=== PATIENT | female | born 1965 | race Caucasian/White ===

== ENCOUNTER 2017-03-13 08:07 | Day surgery (SDC) | payer BC ==
[2017-03-04 15:24] LABS: BASOPHILS 0.3 %; BASOPHILS ABSOLUTE 0.03 10/3/uL (0.0-0.16); BUN (BLOOD UREA NITROGEN) 5 MG/DL (6-23); CALCIUM, SERUM 8.5 MG/DL (8.5-10.4); CHLORIDE, SERUM 103 MMOL/L (96-112); CO2 (CARBON DIOXIDE) 30 MMOL/L (24-34); CREATININE 0.54 MG/DL (0.55-1.02); EOSINOPHILS 0.5 %; EOSINOPHILS ABSOLUTE 0.05 10/3/uL (0.0-0.53); GFR AFRICAN AMERICAN 127 ML/MIN (>=60); GFR NON AFRICAN AMERICAN 109 ML/MIN (>=60); GLUCOSE, SERUM 119 MG/DL (60-99); HEMATOCRIT 38.1 % (36.0-48.0); HEMOGLOBIN 13.3 g/dL (12.0-16.0); IMMATURE GRANULOCYTES 0.1 %; IMMATURE GRANULOCYTES ABSOLUTE 0.01 10/3/uL (0.0-0.11); LYMPHOCYTES 14.6 %; LYMPHOCYTES ABSOLUTE 1.57 10/3/uL (0.67-4.30); MANUAL DIFF NO %; MEAN CORPUS HGB CONC 34.9 g/dL (32.0-36.0); MEAN CORPUSCULAR HEMOGLOB 31.5 pg (26.0-34.0); MEAN CORPUSCULAR VOLUME 90.3 fL (80-100); MONOCYTES 12.5 %; MONOCYTES ABSOLUTE 1.35 10/3/uL (0.21-1.20); NEUTROPHILS ABSOLUTE 7.76 10/3/uL (2.02-8.40); PLATELET COUNT 214 10/3/uL (150-400); POTASSIUM, SERUM 3.8 MMOL/L (3.5-5.3); RBC DISTRIBUTION WIDTH 13.9 % (12.0-16.0); RED CELL COUNT 4.22 10/6/uL (4.0-5.6); SODIUM, SERUM 140 MMOL/L (135-148); WHITE BLOOD CELLS 10.8 10/3/uL (4.5-10.5)
[2017-03-04 16:18] LABS: ASCORBIC ACID (UR NOT ORDER) NEG (NEG); BILIRUBIN, URINE NEGATIVE (NEG); KETONE, URINE NEGATIVE (NEG); LEUKOCYTE ESTERASE(NOT OR NEG (NEG); WBC (NOT ORDERED) (RFLEX) 1 (0-5)
--- NOTE | ~2017-03-13 | OP ---
Record Of [facility] [address] [place]. [address] NAME: REJI NEWTON : 65 STATUS : [facility]#: [id number] AGE: 51 ADM/REG DATE : 03/13/17 MR#: [id number] REPORT SERV DATE: 03/15/17 DICTATED BY: ANGELO ACOSTA DATE: 03/15/17 REPORT STATUS : Draft TRANSCRIBED BY: MODL DATE: 03/15/17 DATE OF PROCEDURE: 03/13/2017 PREOPERATIVE DIAGNOSIS: Postmenopausal bleeding. POSTOPERATIVE DIAGNOSIS: Postmenopausal bleeding. PROCEDURE: Hysteroscopy with dilation and curettage. CPT code 73972. SURGEON: Angelo Acosta MD. ANESTHESIA: General. ESTIMATED BLOOD LOSS: Less than 10 mL. CRYSTALLOID: 1000 mL. DRAINS: None. FINDINGS: No evidence of polyps or endometrial hypertrophy. Endometrial curettings were performed. PATHOLOGY: Endometrial curettings. COMPLICATIONS: None. POSTOPERATIVE PLAN: Extubated to PACU. PROCEDURE IN DETAIL: After informed consent was signed, the patient was taken to the operating room and placed in dorsal supine position where adequate general anesthesia was administered. She was then placed in dorsal lithotomy position in Robb stirrups and prepped and draped in the usual fashion, and a Tinajero catheter was placed. The uterus was sounded. Cervix dilated and the hysteroscope placed through the endocervical canal and the uterus distended with appropriate media. Findings as above were noted. The hysteroscope was then removed. Then cervix dilated further, and four quadrant sharp endometrial curettings were performed. Excellent hemostasis was noted. This concluded the procedure. The patient was placed back in dorsal supine position, awakened, extubated, and sent to the PACU in stable condition. TB/MODL Angelo Acosta MD Record Of [facility] [address] [place]. [address] NAME: REJI NEWTON : 65 STATUS : [facility] PAT#: [id number] AGE: 51 ADM/REG DATE : 03/13/17 MR#: [id number] REPORT SERV DATE: 03/15/17 DICTATED BY: ANGELO ACOSTA DATE: 03/15/17 REPORT STATUS : Draft TRANSCRIBED BY: ANDREW DATE: 03/15/17 / [id number] CC: Angelo Acosta MD
[~2017-03-13 08:07] MED LIST: ADVIL PO; ZYRTEC ALLGY10 MG PO
== END 2017-03-13 11:56 | disposition home or self-care (01) ==
LOC: SDC 08:07
PROVIDERS: Obstetrics & Gynecology Gynecology
PROC: 0UDB8ZX Extraction of Endometrium, Via Natural or Artificial Opening Endoscopic, Diagnostic (ICD-10-PCS; principal; 2017-03-13 09:30)
DX: N95.0 Postmenopausal bleeding (principal); Z87.01 Personal history of pneumonia (recurrent); Z88.5 Allergy status to narcotic agent; Z88.8 Allergy status to other drugs, medicaments and biological substances
CPT/HCPCS: 71020; 80048; 81001; 84703; 85025; 88305; 93005; J0694; J1885; J2250; J2405; J3010